=== PATIENT | female | born 1945 | race Caucasian/White ===

== ENCOUNTER 2019-01-17 10:39 | Observation (INO) | payer MEDICARE, OTHER ==
[2019-01-17] MEDS ORDERED: ASPIRIN 81 MG TABLET, CHEWABLE PO ONE (11:06)
--- NOTE | 2019-01-17 11:09 | ER Document Report ---
ED Medical Screen (RME) - General Chief Complaint: Dizziness Stated Complaint: DIZZINESS Time Seen by Provider: 01/17/19 11:02 Primary Care Provider: GAVI PEREZ NP [Primary Care Provider] - Follow up as needed Mode of Arrival: Wheelchair Information source: Patient Notes: 73-year-old female with history of asthma and high blood pressure presents the emergency department this morning for complaints of dizziness. Reports dizziness started while she was driving to [employer]. She reports some nausea some sweating left arm pain that is not hurting now. Reports short of breath. Denies history of cardiac disease. Reports that she also had an appointment with Dr. Perez this morning to adjust her blood pressure medication. She reports that she is dizzy no matter what sitting OR standing. I have greeted and performed a rapid initial assessment of this patient. A comprehensive ED assessment and evaluation of the patient, analysis of test results and completion of the medical decision making process will be conducted by additional ED providers. Dictation of this chart was performed using voice recognition software; therefore, there may be some unintended grammatical errors. TRAVEL OUTSIDE OF THE [place] IN LAST 30 DAYS: No - Related Data Allergies/Adverse Reactions: Sulfa (Sulfonamide Antibiotics) Allergy (Verified 01/17/19 10:45) Past Medical History - Social History Chew tobacco use (# tins/day): No Frequency of alcohol use: Occasional Drug Abuse: None Doctor's Discharge - Discharge Referrals: GAVI PEREZ NP [Primary Care Provider] - Follow up as needed
[2019-01-17 11:27] LABS: ABSOLUTE BASOPHILS # (AUTO) 0.1 10^3/uL (0.0-0.2); ABSOLUTE EOSINOPHILS # (AUTO) 0.2 10^3/uL (0.0-0.6); ABSOLUTE LYMPHOCYTES (AUTO) 1.3 10^3/uL (0.5-4.7); ABSOLUTE MONOCYTES (AUTO) 0.4 10^3/uL (0.1-1.4); ABSOLUTE NEUT (AUTO) 4.9 10^3/uL (1.7-8.2); BASOPHILS % (AUTO) 1.5 % (0-2); EOSINOPHILS % (AUTO) 2.5 % (0-6); HEMATOCRIT 44.1 % (36.0-47.0); HEMOGLOBIN 14.9 g/dL (12.0-15.5); LYMPHOCYTES % (AUTO) 18.9 % (13-45); MEAN CORPUSCULAR HEMOGLOBIN 32.6 pg (27.0-33.4); MEAN CORPUSCULAR HGB CONC 33.9 g/dL (32.0-36.0); MEAN CORPUSCULAR VOLUME 96 fl (80-97); MONOCYTES % (AUTO) 5.5 % (3-13); PLATELET COUNT 334 10^3/uL (150-450); RED BLOOD COUNT 4.58 10^6/uL (3.72-5.28); RED CELL DISTRIBUTION WIDTH 12.5 % (11.5-14.0); SEGMENTED NEUTROPHILS % (AUTO) 71.6 % (42-78); TOTAL CELLS COUNTED % (AUTO) 100 %; WHITE BLOOD COUNT 6.9 10^3/uL (4.0-10.5)
[2019-01-17 11:46] LABS: ALBUMIN 4.9 g/dL (3.5-5.0); ALKALINE PHOSPHATASE 91 U/L (38-126); ANION GAP 10 (5-19); ASPARTATE AMINO TRANSFERASE 26 U/L (14-36); BILIRUBIN,DIRECT 0.3 mg/dL (0.0-0.4); BILIRUBIN,TOTAL 0.6 mg/dL (0.2-1.3); BLOOD UREA NITROGEN 11 mg/dL (7-20); CALCIUM 10.1 mg/dL (8.4-10.2); CARBON DIOXIDE 25 mmol/L (22-30); CHLORIDE 102 mmol/L (98-107); CREATINE KINASE 123 U/L (30-135); GLUCOSE 150 mg/dL (75-110); POTASSIUM 4.3 mmol/L (3.6-5.0); TOTAL PROTEIN 7.8 g/dL (6.3-8.2)
[2019-01-17 11:56] LABS: CREATINE KINASE MB 2.81 ng/mL (<4.55)
[2019-01-17 12:21] LABS: TROPONIN I < 0.012 ng/mL
--- NOTE | 2019-01-17 12:27 | RADIOLOGY REPORT (SQ) ---
EXAM DESCRIPTION: CHEST 2 VIEWS COMPLETED DATE/TIME: 01/17/2019 12:07 pm REASON FOR STUDY: SOB COMPARISON: None. EXAM PARAMETERS: NUMBER OF VIEWS: two views TECHNIQUE: Digital Frontal and Lateral radiographic views of the chest acquired. RADIATION DOSE: NA LIMITATIONS: none FINDINGS: LUNGS AND PLEURA: Probable findings of COPD including flattening of the hemidiaphragms wit hout a superimposed consolidation, pleural effusion or pneumothorax. MEDIASTINUM AND HILAR STRUCTURES: No mediastinal or hilar contour abnormality. HEART AND VASCULAR STRUCTURES: The cardiac silhouette and pulmonary vasculature are within normal mcneal its. BONES: Status post right shoulder arthroplasty. There is mild levoconvex scoliosis centered at the t horacolumbar junction. HARDWARE: As above. OTHER: No other finding. IMPRESSION: Probable COPD without a superimposed acute cardiopulmonary process. TECHNICAL DOCUMENTATION: JOB ID: [id number] [employer]- All Rights Reserved Reading location - IP/workstation name: [email or web address]
--- NOTE | 2019-01-17 13:48 | EKG REPORT ---
SEVERITY:- ABNORMAL ECG - SINUS RHYTHM LEFT ATRIAL ABNORMALITY : Confirmed by: Ian Guerrero MD 17-Jan-2019 13:46:58
--- NOTE | 2019-01-17 14:16 | RADIOLOGY REPORT (SQ) ---
EXAM DESCRIPTION: CTA HEAD COMPLETED DATE/TIME: 01/17/2019 2:06 pm REASON FOR STUDY: headache, dizzy, COMPARISON: None. TECHNIQUE: Post IV contrast scanning, thin section axial imaging through the brain to evaluate the a rterial structures. Source and MIP images are saved and reviewed on PACS. Advanced 3D imaging as volume-rendering, MIPs, SSD performed? yes All CT scanners at this facility use dose modulation, iterative reconstruction, and/or weight based d osing when appropriate to reduce radiation dose to as low as reasonably achievable (ALARA). [facility]: Dose Right [facility]: CareDose [facility]: Dose Right [facility]: Teradose 4D [facility]: Teburu CONTRAST TYPE AND DOSE: contrast/concentration: Isovue 350.00 mg/ml; Total Contrast Delivered: 70.0 ml; Total Saline Delivered: 70.0 ml RENAL FUNCTION: GFR > 60. RADIATION DOSE: 1196 mGy cm LIMITATIONS: None. FINDINGS: [place]: The anterior, middle, posterior cerebral arteries are all patent. No ev idence of aneurysm or focal stenosis. POSTERIOR CIRCULATION: The distal vertebral arteries are patent as is the basilar artery. No aneurysm . BRAIN: No gross enhancing lesions as visualized. The superior cerebral hemispheres are not included in the field of view. BONES: Intact as visualized. SINUSES: No fluid or mucosal thickening. OTHER: No other significant finding. IMPRESSION: 1. No acute intracranial pathology. 2. Normal CT angiogram of the brain. No evidence of occlusion, stenosis, or aneurysm. TECHNICAL DOCUMENTATION: JOB ID: [id number] Quality ID # [id number]: Final reports with documentation of one or more dose reduction techniques (e.g., Au tomated exposure control, adjustment of the mA and/or kV according to patient size, use of iterative reconstruction technique) 2010 [employer]- All Rights Reserved Reading location - IP/workstation name: [email or web address]
--- NOTE | 2019-01-17 15:00 | ER Document Report ---
ED General - General Chief Complaint: Dizziness Stated Complaint: DIZZINESS Time Seen by Provider: 01/17/19 11:02 Primary Care Provider: GAVI PEREZ NP [Primary Care Provider] - Follow up as needed Mode of Arrival: Wheelchair Information source: Patient TRAVEL OUTSIDE OF THE [place] IN LAST 30 DAYS: No - HPI Notes: Patient presents with left upper chest and left arm pain. She also had occipital pain. She states his pain was severe and aching. It radiated from the left arm up into her neck and occipital area. It happened approximately 30 minutes before arrival. It lasted for approximately 30 minutes. It came on spontaneously while she was driving. It was associated with dizziness and sweating. She states she was unable to finish driving and had to call someone to come get her. She states she has had several similar episodes in the past but none this severe. She states she has had no type of cardiac evaluation for at least 20 years. She was nauseous was had no vomiting or diarrhea. No recent cough cold or congestion. She states she does smoke. It was constant for the 30 minutes. - Related Data Allergies/Adverse Reactions: Sulfa (Sulfonamide Antibiotics) Allergy (Verified 01/17/19 10:45) Past Medical History - General Information source: Patient - Social History Smoking Status: Current Every Day Smoker Chew tobacco use (# tins/day): No Frequency of alcohol use: Occasional Drug Abuse: None Family History: Reviewed & Not Pertinent Patient has suicidal ideation: No Patient has homicidal ideation: No Review of Systems - Review of Systems Constitutional: denies: Chills, Fever Cardiovascular: Chest pain. denies: Palpitations Respiratory: denies: Cough, Short of breath Gastrointestinal: denies: Abdominal pain, Diarrhea, Vomiting -: Yes All other systems reviewed and negative Physical Exam - Vital signs Interpretation: Normal - General General appearance: Appears well, Alert - HEENT Head: Normocephalic, Atraumatic Eyes: Normal Pupils: PERRL - Respiratory Respiratory status: No respiratory distress Chest status: Nontender Breath sounds: Normal Chest palpation: Normal - Cardiovascular Rhythm: Regular Heart sounds: Normal auscultation Murmur: No - Abdominal Inspection: Normal Distension: No distension Bowel sounds: Normal Tenderness: Nontender Organomegaly: No organomegaly - Back Back: Normal, Nontender - Extremities General upper extremity: Normal inspection, Nontender, Normal color, Normal ROM, Normal temperature General lower extremity: Normal inspection, Nontender, Normal color, Normal ROM, Normal temperature, Normal weight bearing. No: Juanita's sign - Neurological Neuro grossly intact: Yes Cognition: Normal Orientation: AAOx4 [place] Coma Scale Eye Opening: Spontaneous [place] Coma Scale Verbal: Oriented Mateo Coma Scale Motor: Obeys Commands [place] Coma Scale Total: 15 Speech: Normal Motor strength normal: LUE, RUE, LLE, RLE Sensory: Normal - Psychological Associated symptoms: Normal affect, Normal mood - Skin Skin Temperature: Warm Skin Moisture: Dry Skin Color: Normal Course - Re-evaluation Re-evalutation: 01/17/19 14:57 Patient presents with left upper chest pain left arm pain occipital pain dizziness and sweating. It was sudden in onset. I did evaluate the patient for possible cerebrovascular disease but the head CTA was negative. There is still a significant possibility this could be an anginal equivalent. Therefore patient will be admitted to the hospital for further evaluation. HEART Score is 4 01/17/19 15:01 - Laboratory Result Diagrams: 01/17/19 11:16 01/17/19 11:16 Laboratory results interpreted by me: 01/17/19 11:16 Glucose 150 H - Diagnostic Test Radiology reviewed: Image reviewed, Reports reviewed - EKG Interpretation by Hi EKG shows normal: Sinus rhythm Rate: Normal - 69 Rhythm: NSR Thompson/QRS: No: Right axis deviation, Left axis deviation Discharge - Discharge Clinical Impression: Left arm pain, Occipital pain, Tobacco dependence, Dizziness Chest pain Qualifiers: Chest pain type: unspecified Qualified Code(s): R07.9 - Chest pain, unspecified Condition: Stable Disposition: ADMITTED INPATIENT Admitting Provider: Salvador (Hospitalist) - haroldo pelayo to do admission Unit Admitted: Telemetry Referrals: GAVI PEREZ NP [Primary Care Provider] - Follow up as needed
[2019-01-17] MEDS ORDERED: ONDANSETRON HCL INJ/PF 4 MG/2 ML SDV IV PRN (15:08)
[2019-01-17] MEDS ORDERED: MAG HYDROX/AL HYDROX/SIMETH SUSP 30 ML UDCUP PO PRN (15:08)
[2019-01-17] MEDS ORDERED: OXYCODONE-ACETAMINOPHEN 5-325 MG TABLET PO PRN (15:08)
[2019-01-17] MEDS ORDERED: ZOLPIDEM TARTRATE 5 MG TABLET PO PRN (15:08)
[2019-01-17] MEDS ORDERED: ACETAMINOPHEN 325 MG TABLET PO PRN (15:08)
[2019-01-17] MEDS ORDERED: NITROGLYCERIN 0.4 MG/TAB 25 TAB/BOTTLE SL PRN (15:13)
[2019-01-17] MEDS ORDERED: GLUCAGON,HUMAN RECOMB 1 MG INJ IM PRN (15:17)
[2019-01-17] MEDS ORDERED: DEXTROSE 50%-WATER 25 GM/50 ML DISP.SYRIN IV PRN ×2 (15:17)
[2019-01-17] MEDS ORDERED: DEXTROSE 40% GEL 15 GM TUBE PO PRN ×2 (15:17)
--- NOTE | 2019-01-17 15:23 | PDOC H&P ---
History of Present Illness Admission Date/PCP: 01/17/19 15:03 GAVI PEREZ NP Patient complains of: Left upper chest pain and left arm pain. Also stated occipital headache History of Present Illness: JW GONZALEZ is a 73 year old female Past Medical History Medical History: None Past Surgical History Past Surgical History: Reports: None Social History Information Source: Patient Lives with: Family Smoking Status: Current Every Day Smoker Cigarettes Packs Per Day: 20 Electronic Cigarette use?: No Frequency of Alcohol Use: Occasional Hx Recreational Drug Use: No Drugs: None Hx Prescription Drug Abuse: No - Advance Directive Resuscitation Status: Full Code Family History Family History: CAD, Hypertension Parental Family History Reviewed: Yes Children Family History Reviewed: Yes Sibling(s) Family History Reviewed.: Yes Medication/Allergy Allergies/Adverse Reactions: Sulfa (Sulfonamide Antibiotics) Allergy (Verified 01/17/19 10:45) Review of Systems Constitutional: ABSENT: chills, fever(s), headache(s), weight gain, weight loss Eyes: ABSENT: visual disturbances Ears: ABSENT: hearing changes Cardiovascular: PRESENT: other - Left upper chest pain radiation left arm. ABSENT: chest pain, dyspnea on exertion, edema, orthropnea, palpitations Respiratory: ABSENT: cough, hemoptysis Gastrointestinal: ABSENT: abdominal pain, constipation, diarrhea, hematemesis, hematochezia, nausea, vomiting Genitourinary: ABSENT: dysuria, hematuria Musculoskeletal: ABSENT: joint swelling Integumentary: ABSENT: rash, wounds Neurological: ABSENT: abnormal gait, abnormal speech, confusion, dizziness, focal weakness, syncope Psychiatric: ABSENT: anxiety, depression, homidical ideation, suicidal ideation Endocrine: ABSENT: cold intolerance, heat intolerance, polydipsia, polyuria Hematologic/Lymphatic: ABSENT: easy bleeding, easy bruising Physical Exam Vital Signs: Temp Pulse Resp BP Pulse Ox 15 157/89 H 100 01/17/19 15:02 01/17/19 15:02 01/17/19 15:02 Intake & Output 01/16/19 01/17/19 01/18/19 06:59 06:59 06:59 Weight 48.9 kg General appearance: PRESENT: no acute distress, well-developed, well-nourished Head exam: PRESENT: atraumatic, normocephalic Eye exam: PRESENT: conjunctiva pink, EOMI, PERRLA. ABSENT: scleral icterus Ear exam: PRESENT: normal external ear exam Mouth exam: PRESENT: moist, tongue midline Neck exam: ABSENT: carotid bruit, JVD, lymphadenopathy, thyromegaly Respiratory exam: PRESENT: clear to auscultation candi. ABSENT: rales, rhonchi, wheezes Cardiovascular exam: PRESENT: RRR. ABSENT: diastolic murmur, rubs, systolic murmur Pulses: PRESENT: normal dorsalis pedis pul Vascular exam: PRESENT: normal capillary refill GI/Abdominal exam: PRESENT: normal bowel sounds, soft. ABSENT: distended, guarding, mass, organolmegaly, rebound, tenderness Rectal exam: PRESENT: deferred Extremities exam: PRESENT: full ROM. ABSENT: calf tenderness, clubbing, pedal edema Neurological exam: PRESENT: alert, awake, oriented to person, oriented to place, oriented to time, oriented to situation, CN II-XII grossly intact. ABSENT: motor sensory deficit Psychiatric exam: PRESENT: appropriate affect, normal mood. ABSENT: homicidal ideation, suicidal ideation Skin exam: PRESENT: dry, intact, warm. ABSENT: cyanosis, rash Results Laboratory Results: 01/17/19 11:16 01/17/19 11:16 01/17/19 01/17/19 11:16 11:16 WBC 6.9 RBC 4.58 Hgb 14.9 Hct 44.1 MCV 96 MCH 32.6 MCHC 33.9 RDW 12.5 Plt Count 334 Seg Neutrophils % 71.6 Sodium 137.1 Potassium 4.3 Chloride 102 Carbon Dioxide 25 Anion Gap 10 BUN 11 Creatinine 0.74 Est GFR ( Amer) > 60 Glucose 150 H Calcium 10.1 Total Bilirubin 0.6 AST 26 Alkaline Phosphatase 91 Total Protein 7.8 Albumin 4.9 01/17/19 01/17/19 11:16 11:16 Creatine Kinase 123 CK-MB (CK-2) 2.81 Troponin I < 0.012 Impressions: Chest X-Ray 01/17/19 11:06 IMPRESSION: Probable COPD without a superimposed acute cardiopulmonary process. Head CTA 01/17/19 13:38 IMPRESSION: 1. No acute intracranial pathology. 2. Normal CT angiogram of the brain. No evidence of occlusion, stenosis, or aneurysm. Assessment and Plan - Diagnosis (1) Chest pain, rule out acute myocardial infarction Is this a current diagnosis for this admission?: Yes Plan: 01/17/2019-Place patient on telemetry. Serial troponins. Lexiscan a.m. Beta- blockers, GIOVANY inhibitor, therapeutic Lovenox. Will trend troponins add other medications as necessary at this time. (2) Hyperglycemia Is this a current diagnosis for this admission?: Yes Plan: 01/17/2019-sliding scale insulin before meals and at bedtime. A1c in a.m. (3) Tobacco dependence Is this a current diagnosis for this admission?: Yes Plan: 01/17/2019-continue to educate about health benefits of smoking cessation. - Time Time Spent with patient: 35 or more minutes
[2019-01-17] MEDS: INSULIN REG, HUMAN 100 UNIT/ML 3 ML VIAL (PYX) SUBCUT SCH ×2 (16:55→21:56)
[2019-01-17] MEDS: ENOXAPARIN SODIUM INJ 60 MG/0.6 ML DISP.SYRIN SUBCUT SCH (21:58)
[2019-01-17] MEDS ORDERED: ATORVASTATIN CALCIUM 80 MG TABLET PO SCH (22:00)
[2019-01-18 07:22] LABS: HEMATOCRIT 39.1 % (36.0-47.0); HEMOGLOBIN 13.6 g/dL (12.0-15.5); MEAN CORPUSCULAR HEMOGLOBIN 33.4 pg (27.0-33.4); MEAN CORPUSCULAR HGB CONC 34.9 g/dL (32.0-36.0); MEAN CORPUSCULAR VOLUME 96 fl (80-97); PLATELET COUNT 286 10^3/uL (150-450); RED BLOOD COUNT 4.09 10^6/uL (3.72-5.28); RED CELL DISTRIBUTION WIDTH 12.1 % (11.5-14.0); WHITE BLOOD COUNT 5.5 10^3/uL (4.0-10.5)
[2019-01-18 07:43] LABS: APPEARANCE,URINE CLEAR; BILIRUBIN,URINE NEGATIVE (NEGATIVE); COLOR,URINE YELLOW; GLUCOSE, URINE NEGATIVE (NEGATIVE); KETONES,URINE NEGATIVE (NEGATIVE); LEUKOCYTE ESTERASE,URINE TRACE (NEGATIVE); NITRITE,URINE NEGATIVE (NEGATIVE); PROTEIN,URINE NEGATIVE (NEGATIVE); URINE SPECIFIC GRAVITY 1.019; UROBILINOGEN,URINE NEGATIVE mg/dL (<2.0)
[2019-01-18 07:44] LABS: ANION GAP 8 (5-19); BLOOD UREA NITROGEN 10 mg/dL (7-20); CALCIUM 9.4 mg/dL (8.4-10.2); CARBON DIOXIDE 25 mmol/L (22-30); CHLORIDE 103 mmol/L (98-107); CHOLESTEROL 234.33 mg/dL (0-200); GLUCOSE 85 mg/dL (75-110); PHOSPHORUS 3.9 mg/dL (2.5-4.5); POTASSIUM 3.9 mmol/L (3.6-5.0); TRIGLYCERIDES 112 mg/dL (<150)
[2019-01-18 07:54] LABS: DIRECT LDL 109 mg/dL (<100)
[2019-01-18] MEDS ORDERED: LISINOPRIL 5 MG TABLET PO SCH (10:00)
[2019-01-18] MEDS ORDERED: METOPROLOL SUCCINATE 25 MG TAB.SR.24H PO SCH (10:00)
[2019-01-18] MEDS ORDERED: ASPIRIN 81 MG TABLET, ENT COATED PO SCH (10:00)
[2019-01-18] MEDS: INSULIN REG, HUMAN 100 UNIT/ML 3 ML VIAL (PYX) SUBCUT SCH ×3 (10:58→17:16)
[2019-01-18] MEDS: ENOXAPARIN SODIUM INJ 60 MG/0.6 ML DISP.SYRIN SUBCUT SCH (11:41)
[2019-01-18] MEDS ORDERED: REGADENOSON INJ 0.4 MG/5 ML DISP.SYRIN IV ONE (14:06)
[2019-01-18 17:16] VITALS: BP 116/51
--- NOTE | 2019-01-18 18:17 | DRAGON STRESS TEST REPORT ---
Intravenous Lexiscan Cardiolite stress test using single photon emmision computerized tomography. Date of procedure: 01/18/2019.Ordering Provider: Mr. Gallo Amador NP.. Patient's status In Patient. Indication: Chest pain. Coronary risk factors: Age, diabetes mellitus, hypertension, dyslipidemia, tobacco abuse disorder, and family history of coronary artery disease. Resting EKG: Sinus Rhythm. EKG within normal limits. Stress EKG: No changes of ischemia. The patient had no chest pain or discomfort, and there were no arrhythmias seen. Reason for termination: Protocol. Conclusions: Normal EKG and hemodynamic response to IV Lexiscan. Nuclear data: At rest the patient was given 10.20 millicuries of technetium 99m sestamibi injected intravenously. As per protocol rest non gated SPECT images were obtained. Subsequently the patient was given intravenous Lexiscan at a dose of 0.4 mg in 5 mL intravenously, followed by flush with normal saline. Subsequently the stress dose of 31.6 millicuries of technetium 99m sestamibi was injected intravenously. As per protocol stress gated images were obtained. Nuclear interpretation: Review of images showed that all segments of the myocardium had normal perfusion at rest, and normal perfusion post stress with IV Lexiscan. All segments of the myocardium had normal motion, contraction, and thickening by gated study. T. I D. ratio was read as borderline abnormal at 1.21. Visually this is not reliable, and the visual T I D ratio is within normal limits.. There is no transient ischemic dilatation of the left ventricle. Computer read rest, and stress left ventricular ejection fraction were 61 %, and 61 %, respectively. Conclusion: 1. There is no scintigraphic evidence of Lexiscan induced myocardial ischemia. 2. There is no scintigraphic evidence of myocardial infarction/scar. Recommendations: Aggressive risk factor modification, and treating the underlying co- morbidities. [facility]
--- NOTE | 2019-01-19 14:17 | PDOC DISCHARGE SUMMARY ---
Impression - Admit/DC Date/PCP Admission Date/Primary Care Provider: 01/17/19 15:03 GAVI PEREZ NP Discharge Date: 01/18/19 - Discharge Diagnosis (1) Chest pain Is this a current diagnosis for this admission?: Yes (2) Dizziness Is this a current diagnosis for this admission?: Yes (3) Occipital pain Is this a current diagnosis for this admission?: Yes (4) Tobacco dependence Is this a current diagnosis for this admission?: Yes (5) Hyperlipidemia Is this a current diagnosis for this admission?: Yes - Additional Information Resuscitation Status: Full Code Discharge Diet: Cardiac, Diabetic Discharge Activity: Activity As Tolerated Referrals: GAVI PEREZ NP [Primary Care Provider] - Follow up as needed ELIGIO LIPSCOMB MD [ACTIVE STAFF] - Prescriptions: Aspirin [Children's Aspirin] 81 mg PO DAILY 30 Days #30 tab.chew Atorvastatin Calcium [Lipitor 40 mg Tablet] 40 mg PO QHS 30 Days #30 tablet Home Medications: Albuterol Sulfate [Albuterol Sulfate Hfa] 2 puff IH Q6HP PRN 01/17/19 Amlodipine Besylate [Norvasc 10 mg Tablet] 10 mg PO QHS 01/17/19 Atorvastatin Calcium [Lipitor 10 mg Tablet] 10 mg PO QHS 01/17/19 Gabapentin [Neurontin 300 mg Capsule] 300 mg PO Q8HP PRN 01/17/19 Triamterene/Hydrochlorothiazid [Maxzide 75 mg-50 mg Tablet] 1 tab PO DAILY 01/17/19 Aspirin [Children's Aspirin] 81 mg PO DAILY 30 Days #30 tab.chew 01/18/19 Atorvastatin Calcium [Lipitor 40 mg Tablet] 40 mg PO QHS 30 Days #30 tablet 01/18/19 History of Present Illiness History of Present Illness: JW GONZALEZ is a 73 year old female Hospital Course Hospital Course: (1) Chest pain Noncardiac. Most likely cause musculoskeletal versus anxiety. Troponins negative x3. EKG no acute changes. Was admitted to telemetry, started on antiplatelets, statins, beta-blockers and GIOVANY. Nuclear stress test was done which came back positive negative. Cardiolite stress test: No scintigraphic evidence of lexicon induced myocardial ischemia or myocardial infarction/scar. Resting EKG sinus rhythm. Stress EKG no changes of ischemia. Conclusion: Normal EKG and hemodynamic response to IV Lexiscan. (2) Dizziness Denies any syncope, presyncope or vertigo. CTA head negative for any acute abnormalities. No dizzy spells reported while inpatient. I noted with spa manager that patient was noted to have sinus bradycardia heart rate of high 50s not sure if this was the cause of her dizziness. An appointment was made for patient to see Dr. Lipscomb for a 30-day event monitor placement. Patient was advised on importance of follow-up with Dr. Lipscomb for work-up of her bradycardia. (3) Occipital pain CT head negative. Supportive measures. (4) Tobacco dependence Advised on abstinence. (5) Hyperlipidemia Started on atorvastatin 40 mg p.o. daily. Physical Exam Vital Signs: Temp Pulse Resp BP Pulse Ox 97.5 F 60 12 116/51 L 98 01/18/19 18:19 01/18/19 18:19 01/18/19 18:19 01/18/19 18:19 01/18/19 18:19 Intake & Output 01/18/19 01/19/19 01/20/19 06:59 06:59 06:59 Intake Total 480 358 Balance 480 358 Weight 38.1 kg Results Laboratory Results: WBC 5.5 10^3/uL (4.0-10.5) 01/18/19 06:12 RBC 4.09 10^6/uL (3.72-5.28) 01/18/19 06:12 Hgb 13.6 g/dL (12.0-15.5) 01/18/19 06:12 Hct 39.1 % (36.0-47.0) 01/18/19 06:12 MCV 96 fl (80-97) 01/18/19 06:12 MCH 33.4 pg (27.0-33.4) 01/18/19 06:12 MCHC 34.9 g/dL (32.0-36.0) 01/18/19 06:12 RDW 12.1 % (11.5-14.0) 01/18/19 06:12 Plt Count 286 10^3/uL (150-450) 01/18/19 06:12 Lymph % (Auto) 18.9 % (13-45) 01/17/19 11:16 Drew % (Auto) 5.5 % (3-13) 01/17/19 11:16 Eos % (Auto) 2.5 % (0-6) 01/17/19 11:16 Baso % (Auto) 1.5 % (0-2) 01/17/19 11:16 Absolute Neuts (auto) 4.9 10^3/uL (1.7-8.2) 01/17/19 11:16 Absolute Lymphs (auto) 1.3 10^3/uL (0.5-4.7) 01/17/19 11:16 Absolute Monos (auto) 0.4 10^3/uL (0.1-1.4) 01/17/19 11:16 Absolute Eos (auto) 0.2 10^3/uL (0.0-0.6) 01/17/19 11:16 Absolute Basos (auto) 0.1 10^3/uL (0.0-0.2) 01/17/19 11:16 Seg Neutrophils % 71.6 % (42-78) 01/17/19 11:16 Sodium 135.6 mmol/L (137-145) L 01/18/19 06:12 Potassium 3.9 mmol/L (3.6-5.0) 01/18/19 06:12 Chloride 103 mmol/L (98-107) 01/18/19 06:12 Carbon Dioxide 25 mmol/L (22-30) 01/18/19 06:12 Anion Gap 8 (5-19) 01/18/19 06:12 BUN 10 mg/dL (7-20) 01/18/19 06:12 Creatinine 0.69 mg/dL (0.52-1.25) 01/18/19 06:12 Est GFR ( Amer) > 60 (>60) 01/18/19 06:12 Est GFR (MDRD) Non-Af > 60 (>60) 01/18/19 06:12 Glucose 85 mg/dL (75-110) 01/18/19 06:12 POC Glucose 84 mg/dL (70-110) 01/18/19 16:45 Hemoglobin A1c % 5.6 % (4.7-6.0) 01/18/19 06:12 Calcium 9.4 mg/dL (8.4-10.2) 01/18/19 06:12 Phosphorus 3.9 mg/dL (2.5-4.5) 01/18/19 06:12 Magnesium 1.9 mg/dL (1.6-2.3) 01/18/19 06:12 Total Bilirubin 0.6 mg/dL (0.2-1.3) 01/17/19 11:16 Direct Bilirubin 0.3 mg/dL (0.0-0.4) 01/17/19 11:16 Neonat Total Bilirubin Not Reportable 01/17/19 11:16 Neonat Direct Bilirubin Not Reportable 01/17/19 11:16 Neonat Indirect Bili Not Reportable 01/17/19 11:16 AST 26 U/L (14-36) 01/17/19 11:16 ALT 20 U/L (<35) 01/17/19 11:16 Alkaline Phosphatase 91 U/L (38-126) 01/17/19 11:16 Creatine Kinase 123 U/L (30-135) 01/17/19 11:16 CK-MB (CK-2) 2.81 ng/mL (<4.55) 01/17/19 11:16 Troponin I < 0.012 ng/mL 01/18/19 11:30 Total Protein 7.8 g/dL (6.3-8.2) 01/17/19 11:16 Albumin 4.9 g/dL (3.5-5.0) 01/17/19 11:16 Triglycerides 112 mg/dL (<150) 01/18/19 06:12 Cholesterol 234.33 mg/dL (0-200) H 01/18/19 06:12 LDL Cholesterol Direct 109 mg/dL (<100) H 01/18/19 06:12 VLDL Cholesterol 22.0 mg/dL (10-31) 01/18/19 06:12 HDL Cholesterol 100 mg/dL (>40) 01/18/19 06:12 Urine Color YELLOW 01/18/19 06:44 Urine Appearance CLEAR 01/18/19 06:44 Urine pH 7.0 (5.0-9.0) 01/18/19 06:44 Ur Specific Carter 1.019 01/18/19 06:44 Urine Protein NEGATIVE mg/dL (NEGATIVE) 01/18/19 06:44 Urine Glucose (UA) NEGATIVE mg/dL (NEGATIVE) 01/18/19 06:44 Urine Ketones NEGATIVE mg/dL (NEGATIVE) 01/18/19 06:44 Urine Blood NEGATIVE (NEGATIVE) 01/18/19 06:44 Urine Nitrite NEGATIVE (NEGATIVE) 01/18/19 06:44 Urine Bilirubin NEGATIVE (NEGATIVE) 01/18/19 06:44 Urine Urobilinogen NEGATIVE mg/dL (<2.0) 01/18/19 06:44 Ur Leukocyte Esterase TRACE (NEGATIVE) H 01/18/19 06:44 Urine WBC (Auto) 2 /HPF 01/18/19 06:44 Urine Ascorbic Acid NEGATIVE (NEGATIVE) 01/18/19 06:44 01/17/19 01/17/19 01/18/19 11:16 15:02 11:30 CK-MB (CK-2) 2.81 Troponin I < 0.012 < 0.012 < 0.012 Impressions: Chest X-Ray 01/17/19 11:06 IMPRESSION: Probable COPD without a superimposed acute cardiopulmonary process. Head CTA 01/17/19 13:38 IMPRESSION: 1. No acute intracranial pathology. 2. Normal CT angiogram of the brain. No evidence of occlusion, stenosis, or aneurysm. Stroke Is this a Stroke Patient?: No Acute Heart Failure - Is this a Heart Failure Patient?: No
== END 2019-01-18 19:15 | disposition home or self-care (01) ==
LOC: ER 10:39 → INTOOBSV 15:03 → EH 15:03 → 5 17:16
PROVIDERS: ADMIT Hospitalist; ATTEND Hospitalist
DX: R07.89 Other chest pain (principal); R42 Dizziness and giddiness; R51 Headache; E78.5 Hyperlipidemia, unspecified; F17.210 Nicotine dependence, cigarettes, uncomplicated; R00.1 Bradycardia, unspecified; M79.622 Pain in left upper arm; R61 Generalized hyperhidrosis; R73.9 Hyperglycemia, unspecified; R11.0 Nausea; Z79.899 Other long term (current) drug therapy; Z82.49 Family history of ischemic heart disease and other diseases of the circulatory system; Z79.82 Long term (current) use of aspirin
CPT/HCPCS: 93005; 99284; 36415 ×2; 82553; 82962 ×2; 82550; 83735; 84100; 85025; 85027; 80048; 80053; 81001; 84484 ×2; 83036; 80061; 93017; 71046; 78452; 70496; 93010; G0378 ×3; A9500; J2785; A9270 ×5; J1650 ×2; Q9969

== ENCOUNTER → 2019-02-04 | Outpatient (CLI) | payer MEDICARE, OTHER ==
--- NOTE | 2019-02-04 13:24 | RADIOLOGY REPORT (SQ) ---
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 TECHNIQUE: Sagittal and Axial imaging includes T1, T2, STIR and gradient echo sequences. LIMITATIONS: None. FINDINGS: ALIGNMENT: Normal. VERTEBRAE: Intact. BONE MARROW: Normal. No marrow replacement or reactive changes. DISCS: Variable disc osteophyte complexes with diminished signal and height throughout. HARDWARE: None in the spine. CORD AND BASE OF BRAIN: Normal in size and signal intensity. SOFT TISSUES: No soft tissue masses. C1-C2: No significant spinal stenosis. C2-C3: No significant spinal stenosis or exit foraminal stenosis. C3-C4: Mild disc osteophyte complex without cord compression or significant stenosis. C4-C5: Mild disc osteophyte complex. Central small protrusion component contacts the cord without ma ss effect. Mild left foraminal narrowing. C5-C6: Disc osteophyte complex without cord compression. No foraminal stenosis. C6-C7: Small central protrusion without cord impingement. No stenosis. C7-T1: No significant spinal stenosis or exit foraminal stenosis. UPPER THORACIC: Incompletely imaged. No significant spinal stenosis or exit foraminal stenosis. OTHER: No other significant finding. IMPRESSION: 1. Multilevel spondylosis. Disc disease as above. No high-grade stenosis or significant cord compre ssion. 2. No spinal malalignment or fracture or worrisome bone lesion. TECHNICAL DOCUMENTATION: JOB ID: [id number] [employer]- All Rights Reserved Reading location - IP/workstation name: [email or web address]
== END ==
LOC: RAD 09:53
PROVIDERS: ATTEND Nurse Practitioner Primary Care
DX: G60.0 Hereditary motor and sensory neuropathy (principal); G56.31 Lesion of radial nerve, right upper limb; M50.30 Other cervical disc degeneration, unspecified cervical region
CPT/HCPCS: 72141

== ENCOUNTER → 2019-03-26 | Outpatient (CLI) | payer MEDICARE, OTHER ==
--- NOTE | 2019-03-26 14:07 | RADIOLOGY REPORT (SQ) ---
EXAM DESCRIPTION: MRI PELVIS WITHOUT COMPLETED DATE/TIME: 03/26/2019 11:43 am REASON FOR STUDY: R93.7 ABNORMAL FINDING ON DIAGNOSTIC IMAGING OF OTHER PARTS OF MSK R93.7 ABNORMAL FINDINGS ON DIAGNOSTIC IMAGING OF PRT MS SYS COMPARISON: MRI lumbar spine 03/19/2019. TECHNIQUE: Multiplanar imaging of the sacrum to include fat and fluid sensitive sequences. LIMITATIONS: None. FINDINGS: BONE MARROW: Abnormal marrow signal in the left upper to mid sacrum ventrally is better ev aluated on these dedicated sacral images. Hyperintense T2, intermediate T1. Within the midst of the edema, suggestion of linear foci, probably nondisplaced insufficiency fracture. The adjacent SI janet nt looks normal. Mild marrow edema related to spondylosis at L4-5. SOFT TISSUES: No associated soft tissue mass or edema. OTHER: No other significant finding. IMPRESSION: Signal in the left carlos sacrum is suspected to be insufficiency fracture. Doubt underly ing mass lesion. Any further imaging should be performed depending on clinical concern for malignanc y, however. This might include radiographs and whole-body bone scan as warranted. TECHNICAL DOCUMENTATION: JOB ID: [id number] [employer]- All Rights Reserved Reading location - IP/workstation name: [email or web address]
== END ==
LOC: RAD 11:02
PROVIDERS: ATTEND Neurological Surgery
DX: M54.5 Low back pain (principal); M54.6 Pain in thoracic spine; R93.7 Abnormal findings on diagnostic imaging of other parts of musculoskeletal system
CPT/HCPCS: 72195

== ENCOUNTER → 2019-08-25 | Outpatient (CLI) | payer MEDICARE, OTHER ==
--- NOTE | 2019-08-25 10:47 | WOMENS IMAGING REPORT ---
EXAM DESCRIPTION: BONE DENSITY HIP/SPINE IMAGES COMPLETED DATE/TIME: 08/25/2019 10:07 am REASON FOR STUDY: Z78.0 ASYMPTOMATIC MENOPAUSAL STATE Z78.0 ASYMPTOMATIC MENOPAUSAL STATE COMPARISON: None. TECHNIQUE: Dual-Energy X-ray Absorptiometry (DEXA) of the AP Spine and Hip. LIMITATIONS: None. FINDINGS: LUMBAR SPINE: The bone mineral density (BMD) measured from L1-L4 in the AP projection correlates with a T-score of -0.8, which is normal as defined by the World Health Organization. BMD Change vs Baseline: N/A HIP: The bone mineral density (BMD) measured in the left hip correlates with a T-score of -2.1 in the neck , which is osteopenia as defined by the World Health Organization. BMD Change vs Baseline: N/A 10 year Fracture Risk Assessment: Major Osteoporotic Fracture: 23% without prior fracture. 32% with prior fracture. Hip Fracture: 17% without prior fracture. 24% with prior fracture. IMPRESSION: 1. LUMBAR SPINE WHO CLASSIFICATION: NORMAL. 2. HIP WHO CLASSIFICATION: OSTEOPENIA. OVERALL ASSESSMENT: WHO CLASSIFICATION: OSTEOPENIA. COMMENT: The World Health Organization defines low BMD as follows: T-score: Normal: At or above -1.0 Osteopenia: Between -1.0 and -2.5 Osteoporosis: At or below -2.5 without fractures Established osteoporosis: At or below -2.5 with fractures In general, you may wish to consider: Diagnosis Treatment Follow-up DEXA Normal BMD Prevention 2-3 years Osteopenia Prevention/Therapy 1-2 years Osteoporosis Therapy Yearly TECHNICAL DOCUMENTATION: JOB ID: [id number] 2010 [employer]- All Rights Reserved Reading location - IP/workstation name: [email or web address]
== END ==
LOC: WI 10:02
PROVIDERS: ATTEND Nurse Practitioner Primary Care
DX: M81.0 Age-related osteoporosis without current pathological fracture (principal); E28.39 Other primary ovarian failure
CPT/HCPCS: 77080

== ENCOUNTER → 2019-10-14 | Outpatient (CLI) | payer MEDICARE, OTHER ==
--- NOTE | 2019-10-14 13:16 | RADIOLOGY REPORT (SQ) ---
EXAM DESCRIPTION: MRI HEAD WITHOUT IMAGES COMPLETED DATE/TIME: 10/14/2019 12:07 pm REASON FOR STUDY: (R25.1)TREMOR, UNSPECIFIED R25.1 TREMOR, UNSPECIFIED COMPARISON: CT 01/17/2019. TECHNIQUE: Multiplanar imaging includes non-contrasted T1, T2, FLAIR, and Diffusion with ADC map seq uences. Images stored on PACS. LIMITATIONS: None. FINDINGS: ANATOMY: No anomalies. Normal vascular flow voids. Pituitary fossa normal. CSF SPACES: Normal in size and contour. No hemorrhage. CEREBRUM: A few high-signal intensity lesions scattered throughout the white matter on FLAIR imaging with distribution suggesting chronic micro-vascular ischemic change. Sulci and gyri normal in size a nd contour. No evidence of hemorrhage, mass or extraaxial fluid collection. POSTERIOR FOSSA: No signal alteration. No hemorrhage. No edema, masses or mass effect. Internal gayathri tory canals, cerebello-pontine angles, mastoids normal. DIFFUSION: Negative for acute or sub-acute infarction. ORBITS: No masses. Globes normal. PARANASAL SINUSES: No fluid levels. Mucosa normal. OTHER: No other significant finding. IMPRESSION: MINIMAL MICROVASCULAR ISCHEMIC CHANGE. OTHERWISE NORMAL STUDY. EVIDENCE OF ACUTE STROKE: NO. TECHNICAL DOCUMENTATION: JOB ID: [id number] 2010 [employer]- All Rights Reserved Reading location - IP/workstation name: [email or web address]
== END ==
LOC: RAD 10:53
PROVIDERS: ATTEND Nurse Practitioner Family
DX: R25.1 Tremor, unspecified (principal)
CPT/HCPCS: 70551

== ENCOUNTER → 2019-11-20 | Outpatient (CLI) | payer MEDICARE, OTHER ==
--- NOTE | 2019-11-20 10:03 | WOMENS IMAGING REPORT ---
EXAM DESCRIPTION: 3D SCREENING MAMMO BILAT IMAGES COMPLETED DATE/TIME: 11/20/2019 9:39 am REASON FOR STUDY: Z12.31 ENCNTR SCREEN MAMMOGRAM FOR MALIGNANT NEOPLASM OF BREAST Z12.31 ENCNTR SCR EEN MAMMOGRAM FOR MALIGNANT NEOPLASM OF [place] COMPARISON: 2019 EXAM PARAMETERS: Views: Standard craniocaudal and mediolateral oblique views of each breast recorded using digital acquisition and breast tomosynthesis. Read with the assistance of CAD. .[facility] - [employer] Version 9.2 LIMITATIONS: None. FINDINGS: No suspicious masses, suspicious calcifications or architectural distortion. No areas of c oncern. IMPRESSION: NEGATIVE MAMMOGRAM. BIRADS 1. BREAST DENSITY: b. There are scattered areas of fibroglandular density. BIRAD: ASSESSMENT: 1 NEGATIVE RECOMMENDATION: ROUTINE SCREENING COMMENT: The patient has been notified of the results by letter per MQSA requirements. Additional no tification policies are in place for contacting patient with suspicious or incomplete findings. Quality ID #225: The [employer] recommends an annual screening mammogram for women aged 40 years or over. This facility utilizes a reminder system to ensure that all patients receive reminder letters, and/or direct phone calls for appointments. This includes reminders for routine scr eening mammograms, diagnostic mammograms, or other Breast Imaging Interventions when appropriate. Th is patient will be placed in the appropriate reminder system. TECHNICAL DOCUMENTATION: FINDING NUMBER: (1) ASSESSMENT: (1) JOB ID: [id number] 2010 [employer]- All Rights Reserved Reading location - IP/workstation name: [email or web address]
== END ==
LOC: WI 09:07
PROVIDERS: ATTEND Nurse Practitioner Primary Care
DX: Z12.31 Encounter for screening mammogram for malignant neoplasm of breast (principal)
CPT/HCPCS: 77063; 77067

== ENCOUNTER 2019-12-26 11:51 | Emergency (ER) | payer MEDICARE, OTHER ==
--- NOTE | 2019-12-26 12:47 | ER Document Report ---
ED Medical Screen (RME) - General Chief Complaint: Dizziness Stated Complaint: DIZZINESS Time Seen by Provider: 12/26/19 12:42 Primary Care Provider: GAVI PEREZ NP [Primary Care Provider] - Follow up as needed Mode of Arrival: Wheelchair Information source: Patient Notes: 74-year-old female presented to ED for complaint of dizziness neck shoulder and back pain. She states she had a cervical facet block done Wednesday with pain management and the pain is actually worse she is more dizzy. 3/5 patient is unsteady on her feet she stated due to the pain and the dizziness. She is in a wheelchair. She is alert and oriented answering questions appropriately. As soon as I started to bring her into the triage room she kept saying she had to pee she had to pee. We did get her a specimen cup and wipes so we could get a clean urine and we will talk with her in a minute. Patient states she has been short of breath since she came to [place] she states she came here from [place] and she has been having asthma since she came to [place]. She states she has not had any fevers. He states she has been in [place] about a year and a half. I have greeted and performed a rapid initial assessment of this patient. A comprehensive ED assessment and evaluation of the patient, analysis of test results and completion of medical decision making process will be conducted by an additional ED providers. TRAVEL OUTSIDE OF THE [place] IN LAST 30 DAYS: No - Related Data Allergies/Adverse Reactions: Sulfa (Sulfonamide Antibiotics) Allergy (Verified 01/17/19 10:45) Past Medical History Psychiatric Medical History: Denies: Hx Depression Physical Exam - Vital signs Vitals: Temp Pulse Resp BP Pulse Ox 97.8 F 72 16 162/58 H 100 12/26/19 12:05 12/26/19 12:05 12/26/19 12:05 12/26/19 12:05 12/26/19 12:05 Course - Vital Signs Vital signs: Temp Pulse Resp BP Pulse Ox 97.8 F 72 16 162/58 H 100 12/26/19 12:05 12/26/19 12:05 12/26/19 12:05 12/26/19 12:05 12/26/19 12:05 Doctor's Discharge - Discharge Referrals: CHRIS,GAVI, PSYCHOLOGICAL OPERATIONS OFFICER [Primary Care Provider] - Follow up as needed
[2019-12-26 13:19] LABS: ABSOLUTE EOSINOPHILS # (AUTO) 0.1 10^3/uL (0.0-0.6); ABSOLUTE LYMPHOCYTES (AUTO) 1.3 10^3/uL (0.5-4.7); ABSOLUTE MONOCYTES (AUTO) 0.6 10^3/uL (0.1-1.4); ABSOLUTE NEUT (AUTO) 8.2 10^3/uL (1.7-8.2); BASOPHILS % (AUTO) 0.3 % (0-2); EOSINOPHILS % (AUTO) 0.5 % (0-6); HEMATOCRIT 43.2 % (36.0-47.0); HEMOGLOBIN 15.3 g/dL (12.0-15.5); LYMPHOCYTES % (AUTO) 12.8 % (13-45); MEAN CORPUSCULAR HEMOGLOBIN 33.3 pg (27.0-33.4); MEAN CORPUSCULAR HGB CONC 35.4 g/dL (32.0-36.0); MEAN CORPUSCULAR VOLUME 94 fl (80-97); MONOCYTES % (AUTO) 6.2 % (3-13); PLATELET COUNT 374 10^3/uL (150-450); RED BLOOD COUNT 4.59 10^6/uL (3.72-5.28); RED CELL DISTRIBUTION WIDTH 12.5 % (11.5-14.0); SEGMENTED NEUTROPHILS % (AUTO) 80.2 % (42-78); TOTAL CELLS COUNTED % (AUTO) 100 %; WHITE BLOOD COUNT 10.2 10^3/uL (4.0-10.5)
[2019-12-26 13:23] LABS: APPEARANCE,URINE CLOUDY; BILIRUBIN,URINE NEGATIVE (NEGATIVE); COLOR,URINE YELLOW; GLUCOSE, URINE NEGATIVE (NEGATIVE); KETONES,URINE NEGATIVE (NEGATIVE); LEUKOCYTE ESTERASE,URINE NEGATIVE (NEGATIVE); NITRITE,URINE NEGATIVE (NEGATIVE); PROTEIN,URINE NEGATIVE (NEGATIVE); URINE SPECIFIC GRAVITY 1.012; UROBILINOGEN,URINE NEGATIVE mg/dL (<2.0)
[2019-12-26 13:42] LABS: ALBUMIN 4.8 g/dL (3.5-5.0); ALKALINE PHOSPHATASE 83 U/L (38-126); ANION GAP 11 (5-19); ASPARTATE AMINO TRANSFERASE 24 U/L (14-36); BILIRUBIN,DIRECT 0.3 mg/dL (0.0-0.4); BILIRUBIN,TOTAL 0.6 mg/dL (0.2-1.3); BLOOD UREA NITROGEN 19 mg/dL (7-20); CARBON DIOXIDE 27 mmol/L (22-30); CHLORIDE 96 mmol/L (98-107); GLUCOSE 125 mg/dL (75-110); POTASSIUM 3.8 mmol/L (3.6-5.0); TOTAL PROTEIN 7.4 g/dL (6.3-8.2)
--- NOTE | 2019-12-26 13:53 | RADIOLOGY REPORT (SQ) ---
EXAM DESCRIPTION: CHEST 2 VIEWS IMAGES COMPLETED DATE/TIME: 12/26/2019 1:34 pm REASON FOR STUDY: short of breath cardiac hx COMPARISON: 01/17/2019 TECHNIQUE: Frontal and lateral radiographic views of the chest acquired. NUMBER OF VIEWS: Two view. LIMITATIONS: None. FINDINGS: LUNGS AND PLEURA: No pneumothorax. Similar scattered interstitial changes. No consolidat ion or pleural effusion. MEDIASTINUM AND HILAR STRUCTURES: Stable. HEART AND VASCULAR STRUCTURES: Stable. BONES: No acute findings. HARDWARE: None in the chest. OTHER: No other significant finding. IMPRESSION: NO ACUTE FINDINGS. TECHNICAL DOCUMENTATION: JOB ID: [id number] 2010 [employer]- All Rights Reserved Reading location - IP/workstation name: [email or web address]
[2019-12-26] MEDS ORDERED: FAMOTIDINE 20 MG TABLET PO ONE (16:12)
--- NOTE | 2019-12-26 16:20 | ER Document Report ---
ED General - General Chief Complaint: Dizziness Stated Complaint: DIZZINESS Time Seen by Provider: 12/26/19 12:42 Primary Care Provider: GAVI PEREZ NP [Primary Care Provider] - Follow up as needed Mode of Arrival: Wheelchair TRAVEL OUTSIDE OF THE [place] IN LAST 30 DAYS: No - HPI Notes: Chief complaint: Musculoskeletal pain, nausea, reflux symptoms, dizziness and difficulty standing and walking due to pain. History of present illness: 74-year-old female history of degenerative arthritis of the spine and associated chronic pain syndrome and severely worsening pain and weakness with ambulation and activities of daily living received your injections to the C-spine at pain management clinic days ago. She reports that since that time her symptoms as noted above have all become worse. She was supposed to have an appointment to see her neurosurgeon, Dr. Dietrich today but decided to come to the emergency department instead. He denies fever. Denies loss of bowel or bladder control. She denies vomiting. 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 HENT: Negative for sore throat. Eyes: Negative for visual changes. Cardiovascular: Negative for chest pain. Respiratory: Negative for shortness of breath. Gastrointestinal: As per HPI. Genitourinary: Negative for dysuria. Musculoskeletal: As per HPI. Skin: Negative for rash. Neurological: No focal weakness. Paresthesias radiating from right shoulder to fingers of right hand intermittently with movement of her neck. 10 point ROS negative except as marked above and in HPI. Physical Exam - Vital signs Vitals: Temp Pulse Resp BP Pulse Ox 97.8 F 72 16 162/58 H 100 12/26/19 12:05 12/26/19 12:05 12/26/19 12:05 12/26/19 12:05 12/26/19 12:05 - Notes Notes: GENERAL: Well-developed well-nourished appearing in no acute distress. SKIN: Good turgor no rashes. HEAD: Normocephalic atraumatic. EYES: PERRLA. EOMI. Conjunctivae and sclerae clear. EARS: CANALS AND TMS CLEAR. NOSE: CLEAR. MOUTH: Moist mucosa. Good dentition. No stridor or edema. No drooling. NECK: Supple. Pain with active/passive movements. No rigidity. Good range of motion. Mild crepitus. Mild paracervical muscular spasm to palpation. No masses or thyromegaly. No adenopathy. Carotids 2+ without bruits. No JVD. BACK: Symmetrical without tenderness. CHEST: Respirations unlabored. Breath sounds clear and symmetrical. HEART: Regular rhythm. No murmur gallop or rub. ABDOMEN: Soft nontender without masses, organomegaly or rebound. Bowel sounds normally active. No bruits. GENITALIA: Deferred. EXTREMITIES: Moderate degenerative changes interphalangeal joints of both hands. No edema. No calf tenderness. Cap refill less than 1.5 seconds. Dorsalis pedis and posterior tibial pulses 3+ and symmetrical. NEUROLOGICAL: GCS 15. Mild resting tremor right upper extremity. Alert and oriented x3. Fluent speech. Cranial nerves II through XII intact. Sensorimotor and cerebellar normal. Normal tone. PSYCHIATRIC: Flat affect. Course - Re-evaluation Re-evalutation: 12/26/19 16:24 I reviewed all patient's prior imaging in his hospital. She had a brain MRI about 3 months ago showing only some mild microvascular changes which appear chronic. She also has chronic degenerative changes on MRI of the spine. EKG here today is unremarkable as is her chest x-ray. Her troponin is normal. White count is not elevated. Random glucose is 126. Given the patient some oral Pepcid for reflux symptoms. I think she has a combination of persistent musculoskeletal pain and perhaps some adverse systemic effects from steroid injection. I have attempted to contact her neurosurgeon, Dr. Dietrich unsuccessfully. I will left a message at his office await callback at this time. Current impressions are shared with patient and her son-in-law at this time. 12/26/19 16:48 I spoke with the patient's neurosurgeon Dr. Dietrich and he wants us to get a noncontrast head CT. If there are no new findings on this he would concur with previous recommendations for outpatient follow-up in his office within the next several days. This is been discussed with patient and her son-in-law and they are in agreement. - Vital Signs Vital signs: Temp Pulse Resp BP Pulse Ox 97.8 F 72 16 162/58 H 100 12/26/19 12:42 12/26/19 12:05 12/26/19 12:05 12/26/19 12:05 12/26/19 12:05 - Laboratory Result Diagrams: 12/26/19 12:56 12/26/19 12:56 Laboratory results interpreted by me: 12/26/19 12/26/19 12:56 12:56 Lymph % (Auto) 12.8 L Seg Neutrophils % 80.2 H Sodium 133.5 L Chloride 96 L Glucose 125 H - Diagnostic Test Radiology reviewed: Reports reviewed - Normal noncontrast head CT per radiologist - EKG Interpretation by Me Additional EKG results interpreted by me: 12/26/19 16:26 Twelve-lead EKG reviewed by me contemporaneously: 1304 hrs. Indication for study: Dizziness Rhythm: Sinus Rate: 70 Intervals: Borderline prolongation of QTC at 490 ms QRS axis: [place] +[address]/T wave changes: None Comparison with prior tracing: None Interpretation: Normal sinus rhythm with borderline QT prolongation. Mild somatic tremor artifact. Discharge - Discharge Clinical Impression: GERD (gastroesophageal reflux disease) Osteoarthritis of spine Qualifiers: Spinal region: unspecified Spinal osteoarthritis complication: unspecified spinal osteoarthritis Qualified Code(s): M47.9 - Spondylosis, unspecified Condition: Stable Disposition: HOME, SELF-CARE Additional Instructions: Return here as needed for new or worsening symptoms: Pain that is worsening or unimproved Uncontrolled vomiting High fever or shaking chills Overall worsening Follow-up with primary care physician and neurosurgery week. Prescriptions: Pantoprazole Sodium [Protonix [address] Tablet] 40 mg PO QAMPM 10 Days #20 tablet. Referrals: GAVI PEREZ NP [Primary Care Provider] - Follow up as needed AKUA DIETRICH MD [COMMUNITY BASED STAFF] - Follow up as needed
--- NOTE | 2019-12-26 17:26 | RADIOLOGY REPORT (SQ) ---
EXAM DESCRIPTION: CT HEAD WITHOUT IMAGES COMPLETED DATE/TIME: 12/26/2019 5:17 pm REASON FOR STUDY: rue weakness COMPARISON: 10/14/2019 and 01/17/2019 TECHNIQUE: Axial images acquired through the brain without intravenous contrast. Images reviewed wi th bone, brain and subdural windows. Additional sagittal and coronal reconstructions were generated. Images stored on PACS. All CT scanners at this facility use dose modulation, iterative reconstruction, and/or weight based d osing when appropriate to reduce radiation dose to as low as reasonably achievable (ALARA). [facility]: Dose Right [facility]: CareDose [facility]: Dose Right [facility]: Teradose 4D [facility]: Smart bettermarks RADIATION DOSE: CT Rad equipment meets quality standard of care and radiation dose reduction techniq ues were employed. CTDIvol: 53.2 mGy. DLP: 937 mGy-cm. mGy. LIMITATIONS: None. FINDINGS: VENTRICLES: Normal size and contour. CEREBRUM: No masses. No hemorrhage. No midline shift. No evidence for acute infarction. Normal gra y/white matter differentiation. No areas of low density in the white matter. CEREBELLUM: No masses. No hemorrhage. No alteration of density. No evidence for acute infarction. EXTRAAXIAL SPACES: No fluid collections. No masses. ORBITS AND GLOBE: No intra- or extraconal masses. Normal contour of globe without masses. CALVARIUM: No fracture. PARANASAL SINUSES: No fluid or mucosal thickening. SOFT TISSUES: No mass or hematoma. OTHER: No other significant finding. IMPRESSION: NORMAL BRAIN CT WITHOUT CONTRAST. EVIDENCE OF ACUTE STROKE: NO. COMMENT: Quality ID # [id number]: Final reports with documentation of one or more dose reduction techniques (e.g., Automated exposure control, adjustment of the mA and/or kV according to patient size, use of iterative reconstruction technique) TECHNICAL DOCUMENTATION: JOB ID: [id number] 2010 [employer]- All Rights Reserved Reading location - IP/workstation name: [email or web address]
--- NOTE | 2019-12-26 17:33 | EKG REPORT ---
SEVERITY:- ABNORMAL ECG - SINUS RHYTHM BIATRIAL ABNORMALITIES BORDERLINE PROLONGED QT INTERVAL : Confirmed by: Denise Montiel MD 26-Dec-2019 17:32:33
[2019-12-26 19:57] VITALS: BP 132/75
== END 2019-12-26 19:38 | disposition home or self-care (01) ==
LOC: ER 11:51
DX: K21.9 Gastro-esophageal reflux disease without esophagitis (principal); M47.9 Spondylosis, unspecified; R42 Dizziness and giddiness; M79.10 Myalgia, unspecified site; R11.0 Nausea; R26.2 Difficulty in walking, not elsewhere classified; Z88.2 Allergy status to sulfonamides; F17.200 Nicotine dependence, unspecified, uncomplicated; I10 Essential (primary) hypertension; J45.909 Unspecified asthma, uncomplicated
CPT/HCPCS: 93005; 99285; 36415; 85025; 80053; 81001; 84484; 71046; 70450; 93010; A9270

== ENCOUNTER → 2020-01-06 | Outpatient (CLI) | payer MEDICARE, OTHER ==
--- NOTE | 2020-01-06 19:00 | RADIOLOGY REPORT (SQ) ---
EXAM DESCRIPTION: MRA HEAD WITHOUT IMAGES COMPLETED DATE/TIME: 01/06/2020 11:04 am REASON FOR STUDY: R55 SYNCOPE R55 SYNCOPE AND COLLAPSE I67.82 CEREBRAL ISCHEMIA COMPARISON: MRI brain same date. TECHNIQUE: Axial 3-D [id number] acquisition imaging performed through the brain in the area of t he [place]. Images reformatted using 3-D MIPS. LIMITATIONS: None. FINDINGS: SOURCE IMAGES: No unexpected findings on source images. No large masses. 3-D MIP: No aneurysm. No occlusions. No significant stenosis. OTHER: No other significant finding. IMPRESSION: NORMAL MRA OF THE [place]. TECHNICAL DOCUMENTATION: JOB ID: [id number] 2010 [employer]- All Rights Reserved Reading location - IP/workstation name: [email or web address]
--- NOTE | 2020-01-06 19:02 | RADIOLOGY REPORT (SQ) ---
EXAM DESCRIPTION: MRA NECK WITHOUT IMAGES COMPLETED DATE/TIME: 01/06/2020 11:04 am REASON FOR STUDY: R55 SYNCOPE R55 SYNCOPE AND COLLAPSE I67.82 CEREBRAL ISCHEMIA COMPARISON: MRA [place] and MRI brain separately dictated same date. TECHNIQUE: Axial 2-D volume acquisition imaging through the extracranial carotid and vertebral arter ies with reformatting using 3-D MIPS. LIMITATIONS: None. FINDINGS: RIGHT CAROTID ARTERY: No stenosis or occlusive changes. Limited visualization of the orig in. LEFT CAROTID ARTERY: No stenosis or occlusive changes. Limited visualization of the origin. VERTEBRAL ARTERY: The extracranial portions of the vertebral basilar system are preserved without rayna nosis. No aneurysmal dilatation or dissection is seen. OTHER: No other significant finding. IMPRESSION: NO SIGNIFICANT STENOSIS. COMMENT: Quality ID #[id number]: Measurements of distal internal carotid diameter were used as the denomin ator for stenosis measurement. TECHNICAL DOCUMENTATION: JOB ID: [id number] 2010 [employer]- All Rights Reserved Reading location - IP/workstation name: [email or web address]
--- NOTE | 2020-01-06 19:04 | RADIOLOGY REPORT (SQ) ---
EXAM DESCRIPTION: MRI HEAD WITHOUT IMAGES COMPLETED DATE/TIME: 01/06/2020 11:04 am REASON FOR STUDY: R55 SYNCOPE R55 SYNCOPE AND COLLAPSE I67.82 CEREBRAL ISCHEMIA COMPARISON: 10/14/2019. Also correlated with MRA [place] and MRA of the carotid separately dictated same date. TECHNIQUE: Multiplanar imaging includes non-contrasted T1, T2, FLAIR, and Diffusion with ADC map seq uences. Images stored on PACS. LIMITATIONS: None. FINDINGS: ANATOMY: No anomalies. Normal vascular flow voids. Pituitary fossa normal. CSF SPACES: Normal in size and contour. No hemorrhage. CEREBRUM: A few high-signal intensity lesions scattered throughout the white matter on FLAIR imaging with distribution suggesting chronic micro-vascular ischemic change. Sulci and gyri normal in size a nd contour. No evidence of hemorrhage, mass or extraaxial fluid collection. POSTERIOR FOSSA: No signal alteration. No hemorrhage. No edema, masses or mass effect. Internal gayathri tory canals, cerebello-pontine angles, mastoids normal. DIFFUSION: Negative for acute or sub-acute infarction. ORBITS: No masses. Globes normal. PARANASAL SINUSES: No fluid levels. Mucosa normal. OTHER: No other significant finding. IMPRESSION: MINIMAL MICROVASCULAR ISCHEMIC CHANGE. OTHERWISE NORMAL STUDY. EVIDENCE OF ACUTE STROKE: NO. TECHNICAL DOCUMENTATION: JOB ID: [id number] 2010 [employer]- All Rights Reserved Reading location - IP/workstation name: [email or web address]
== END ==
LOC: RAD 10:01
PROVIDERS: ATTEND Neurological Surgery
DX: R55 Syncope and collapse (principal); I67.82 Cerebral ischemia
CPT/HCPCS: 70544; 70547; 70551